=== PATIENT | female | born 1980 | race Hispanic/Latino ===

== ENCOUNTER 2017-04-11 19:30 | Emergency (ER) | payer OTHER ==
[~2017-04-11] VITALS: Ht 144.8 cm; Wt 74.8 kg
[2017-04-11] MEDS ORDERED: RANI150T11 (19:48)
[2017-04-11] MEDS ORDERED: POLY255P (19:48)
[2017-04-11 20:04] LABS: BASOPHILS % (AUTO) 0 % (0-10); EOSINOPHILS # (AUTO) 0.1 10^3/uL (0.0-0.3); EOSINOPHILS % (AUTO) 2 % (0-10); LYMPHOCYTES # (AUTO) 2.3 X 10^3 (1.0-4.0); LYMPHOCYTES % (AUTO) 41 % (12-44); MEAN CORPUSCULAR HEMOGLOBIN 28 PG (25-34); MEAN CORPUSCULAR HGB CONC 35 G/DL (32-36); MEAN CORPUSCULAR VOLUME 82 FL (80-99); MEAN PLATELET VOLUME 10.4 FL (7.4-10.4); MONOCYTES # (AUTO) 0.7 X 10^3 (0.0-1.0); MONOCYTES % (AUTO) 12 % (0-12); NEUTROPHILS # (AUTO) 2.6 X 10^3 (1.8-7.8); NEUTROPHILS % (AUTO) 45 % (42-75); PLATELET COUNT 265 10^3/uL (130-400); RED BLOOD COUNT 4.13 10^6/uL (4.35-5.85); RED CELL DISTRIBUTION WIDTH 13.7 % (10.0-14.5); WHITE BLOOD COUNT 5.7 10^3/uL (4.3-11.0)
[2017-04-11 20:04] LABS: BILIRUBIN,URINE NEGATIVE (NEGATIVE); KETONES,URINE NEGATIVE (NEGATIVE); LEUKOCYTE ESTERASE ,URINE NEGATIVE (NEGATIVE); NITRITE,URINE NEGATIVE (NEGATIVE); PH,URINE 6.5 (5-9); PROTEIN,URINE NEGATIVE (NEGATIVE); UROBILINOGEN,URINE NORMAL (NORMAL)
[2017-04-11] MEDS ORDERED: NS IV 1000 ML 1,000 ML IV ONE (20:05)
[2017-04-11] MEDS ORDERED: KETOROLAC 30 MG/ML VIAL IVP STA (20:05)
--- NOTE | 2017-04-11 20:10 | ED Abdominal Pain ---
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 Reports 4 wk onset of symptoms. Worse with eating or drinking. Also reports intermittent headaches with the abdominal pain. Patient moved here from [facility] 2 months ago. Denies any known mosquito or tick bites. Timing/Duration: Intermittent, Other (4 wks) Severity/Quality: Aching, Cramping Location: LUQ Radiation: Flank (left flank) Activities at Onset: Other (after eating) Modifying Factors: Worsens With Eating, Worsens With Palpation, Worsens With Other (worse with deep breaths) Allergies and Home Medications Allergies Coded Allergies: No Known Drug Allergies (Unverified , 04/11/17) Home Medications Ondansetron 8 Mg Tab.rapdis, 8 MG PO Q6H PRN for NAUSEA/VOMITING-1ST LINE, #10 Ref 0 Prescribed by: FELICE DEMARCO on 04/11/172128 Pantoprazole Sodium 40 Mg Tablet.dr, 40 MG PO BID, #42 Ref 3 One pill 2 times per day for 2 weeks, then one pill daily from that point forward. Prescribed by: DAYAMI MARCUM on 04/28/17 1334 Polyethylene Glycol 3350 255 Gm Powder, (Reported) Sucralfate 1 Gm Tablet, 1 GM PO QID, #120 Prescribed by: DAYAMI MARCUM on 04/28/17 1334 Review of Systems Constitutional: No chills, No fever, malaise, other (fatigue) EENTM: No Symptoms Reported Respiratory: Denies Cough, Denies Shortness of Air Cardiovascular: Denies Chest Pain, Denies Lightheadedness, Denies Palpitations Gastrointestinal: See HPI, Denies Abdomen Distended, Abdominal Pain, Denies Blood Streaked Stools, Denies Constipated, Denies Diarrhea, Nausea, Poor Appetite, Denies Poor Fluid Intake, Denies Rectal Bleeding, Vomiting Genitourinary: Denies Burning, Denies Discharge, Denies Frequency, Denies Flank Pain, Denies Hematuria, Denies Pain Musculoskeletal: no symptoms reported Skin: no symptoms reported Psychiatric/Neurological: No Symptoms Reported Endocrine: No Symptoms Reported All Other Systems Reviewed Negative Unless Noted: Yes (Negative excepted noted.) Past Kbzroep-Qhqnty-Gxjxsc Hx Patient Social History Alcohol Use: Denies Use Recreational Drug Use: No Smoking Status: Never a Smoker 2nd Hand Smoke Exposure: No Recent Foreign Travel: No Contact w/Someone Who Travel: No Recent Infectious Disease Expo: No Recent Hopitalizations: No Immunizations Up To Date Tetanus Booster (TDap): Unknown Seasonal Allergies Seasonal Allergies: No Surgeries History of Surgeries: Yes Surgeries: Section, Gallbladder Respiratory History of Respiratory Disorde: No Cardiovascular History of Cardiac Disorders: No Neurological History of Neurological Disord: No Reproductive System : No Genitourinary History of Genitourinary Disor: No Gastrointestinal History of Gastrointestinal Di: No Musculoskeletal History of Musculoskeletal Dis: No Endocrine History of Endocrine Disorders: No HEENT History of HEENT Disorders: No Cancer History of Cancer: No Psychosocial History of Psychiatric Problem: No Integumentary History of Skin or Integumenta: No Blood Transfusions History of Blood Disorders: No Reviewed Nursing Assessment Reviewed/Agree w Nursing PMH: Yes Family Medical History Significant Family History: No Pertinent Family Hx Physical Exam Vital Signs Capillary Refill : Less Than 3 Seconds General Appearance: WD/WN, no apparent distress HEENT: PERRL/EOMI, pharynx normal Neck: supple, normal inspection Respiratory: lungs clear, normal breath sounds, no respiratory distress, no accessory muscle use Cardiovascular: normal peripheral pulses, regular rate, rhythm, no edema, no murmur Gastrointestinal: normal bowel sounds, soft, no organomegaly, No distended, guarding (BUQ and epigastric), No rebound, tenderness (generalized tenderness with greatest tenderness in the BUQ and epigastric.), No mass Extremities: no pedal edema, normal capillary refill Back: normal inspection, no CVA tenderness Neurologic/Psychiatric: alert, normal mood/affect, oriented x 3 Skin: normal color, warm/dry Progress/Results/Core Measures Results/Orders Lab Results Laboratory Tests Test 04/11/17 19:50 04/11/17 20:00 Range/Units Urine Color YELLOW Urine Clarity CLEAR Urine pH 6.5 5-9 Urine Specific [place] 1.010 L 1.016-1.022 Urine Protein NEGATIVE NEGATIVE Urine Glucose (UA) NEGATIVE NEGATIVE Urine Ketones NEGATIVE NEGATIVE Urine Nitrite NEGATIVE NEGATIVE Urine Bilirubin NEGATIVE NEGATIVE Urine Urobilinogen NORMAL NORMAL MG/DL Urine Leukocyte Esterase NEGATIVE NEGATIVE Urine RBC (Auto) 5+ H NEGATIVE Urine RBC RARE /HPF Urine WBC 0-2 /HPF Urine Squamous Epithelial Cells 25-50 H /HPF Urine Renal Epithelial Cells NONE /HPF Urine Crystals NONE /LPF Urine Bacteria NEGATIVE /HPF Urine Casts NONE /LPF Urine Mucus SMALL H /LPF Urine Culture Indicated NO White Blood Count 5.7 4.3-11.0 10^3/uL Red Blood Count 4.13 L 4.35-5.85 10^6/uL Hemoglobin 11.7 11.5-16.0 G/DL Hematocrit 34 L 35-52 % Mean Corpuscular Volume 82 80-99 FL Mean Corpuscular Hemoglobin 28 25-34 PG Mean Corpuscular Hemoglobin Concent 35 32-36 G/DL Red Cell Distribution Width 13.7 10.0-14.5 % Platelet Count 265 130-400 10^3/uL Mean Platelet Volume 10.4 7.4-10.4 FL Neutrophils (%) (Auto) 45 42-75 % Lymphocytes (%) (Auto) 41 12-44 % Monocytes (%) (Auto) 12 0-12 % Eosinophils (%) (Auto) 2 0-10 % Basophils (%) (Auto) 0 0-10 % Neutrophils # (Auto) 2.6 1.8-7.8 X 10^3 Lymphocytes # (Auto) 2.3 1.0-4.0 X 10^3 Monocytes # (Auto) 0.7 0.0-1.0 X 10^3 Eosinophils # (Auto) 0.1 0.0-0.3 10^3/uL Basophils # (Auto) 0.0 0.0-0.1 10^3/uL Sodium Level 139 135-145 MMOL/L Potassium Level 3.4 L 3.6-5.0 MMOL/L Chloride Level 107 98-107 MMOL/L Carbon Dioxide Level 23 21-32 MMOL/L Anion Gap 9 5-14 MMOL/L Blood Urea Nitrogen 6 L 7-18 MG/DL Creatinine 0.67 0.60-1.30 MG/DL Estimat Glomerular Filtration Rate > 60 BUN/Creatinine Ratio 9 Glucose Level 90 70-105 MG/DL Calcium Level 8.7 8.5-10.1 MG/DL Total Bilirubin 0.4 0.1-1.0 MG/DL Aspartate Amino Transf (AST/SGOT) 21 5-34 U/L Alanine Aminotransferase (ALT/SGPT) 22 0-55 U/L Alkaline Phosphatase 65 40-136 U/L C-Reactive Protein High Sensitivity 0.15 0.00-0.50 MG/DL Total Protein 7.0 6.4-8.2 GM/DL Albumin 3.9 3.2-4.5 GM/DL Lipase 29 8-78 U/L FELICE Fontanez Urine Bedside (04/11/17 19:37) Ua Culture If Indicated (04/11/17 19:37) Saline Lock/Iv-Start (04/11/17 19:47) Cbc With Automated Diff (04/11/17 19:47) Comprehensive Metabolic Panel (04/11/17 19:47) Hs C Reactive Protein (04/11/17 19:47) Lipase (04/11/17 19:47) Ketorolac Injection (Toradol Injection) (04/11/17 20:05) Ondansetron Injection (Zofran Injectio (04/11/17 20:15) Ns Iv 1000 Ml (Sodium Chloride 0.9%) (04/11/17 20:05) Ct Abdomen/Pelvis W (04/11/17 20:26) Iohexol Injection (Omnipaque 350 Mg/Ml 1 (04/11/17 20:30) Ns (Ivpb) (Sodium Chloride 0.9% Ivpb Bag (04/11/17 20:30) Pharmacy Communication (Pharmacy Communi (04/11/17 20:28) Ondansetron Injection (Zofran Injectio (04/11/17 21:45) Lidocaine 2% Viscous 15 Ml (Xylocaine Vi (04/11/17 21:45) Antacid Suspension (Mylanta Suspension (04/11/17 21:45) Fentanyl Injection (Sublimaze Injection (04/11/17 21:32) Rx-Tramadol Hcl (Rx-Ultram) (04/11/17 21:32) Diphenhydramine Injection (Benadryl Inje (04/11/17 21:52) Methylprednisolone Sod Succ (Solu-Medrol (04/11/17 21:52) Diphenhydramine Injection (Benadryl Inje (04/11/17 21:46) Methylprednisolone Sod Succ (Solu-Medrol (04/11/17 21:46) 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 The gallbladder is surgically absent. Liver , spleen, pancreas, adrenal glands, kidneys, vascular structures and bowel are normal. There is no free air or free fluid. The appendix is normal. No significant constipation is seen. Uterus is intact. Distal ureters and urinary bladder normal. There is no hernia. Osseous structures are age-appropriate. IMPRESSION: Negative CT abdomen. Dictated on workstation # [id number] Reviewed: Reviewed by Me (radiology report reviewed by me) Departure Communication (Admissions) Progress Notes All laboratory and diagnostic findings discussed with the patient. Patient reports feeling better at this time with medications given in the emergency department. Plan for discharge to home with follow-up as an outpatient with Dr. Marcum for possible need of upper endoscopy as well as [facility] for recheck. Impression Impression: Primary Impression: Abdominal pain Additional Impressions: Headache Fatigue Disposition: HOME, SELF-CARE Condition: Improved Departure-Patient Inst. Decision time for Depature: 21:23 Referrals: [facility] (PCP/Family) Primary Care Physician DAYAMI MARCUM DO Patient Instructions: Acute Abdomen (Belly Pain), Adult (DC), Fatigue (DC), Headache, Adult (DC) Add. Discharge Instructions: All discharge instructions reviewed with patient and/or family. Voiced understanding. Medications as directed. Tylenol extra strength over the counter as directed for pain or headache. No ibuprofen, aleve, spicy foods, fatty foods, caffeine, carbonated beverages, smoking, second hand smoke, alcohol. Do not eat within 2 hours of lying down. Follow-up with your family practitioner and/or Dr. Marcum for recheck and possible need for EGD (upper endoscopy). Call Thursday morning for appointment time. Return to the emergency department for worsened pain, fever, vomiting blood, black stools, abdominal swelling, inability to urinate, or any other concerns. Scripts Ondansetron (Ondansetron Odt) 8 Mg Tab.rapdis 8 MG PO Q6H Y for NAUSEA/VOMITING-1ST LINE, #10 TAB 0 Refills Prov: FELICE DEMARCO 04/11/17 Work/School Note: Work Release Form Date Seen in the Emergency Department: Apr 11, 2017 Return to Work: Apr 13, 2017 FELICE DEMARCO Apr 11, 2017 20:10
[2017-04-11] MEDS ORDERED: ONDANSETRON 4 MG/2 ML (SDV) Z0FRAN IVP ONE ×2 (20:15→21:45)
[2017-04-11 20:18] LABS: SQUAMOUS EPITHELIAL CELL,UR 25-50 /HPF; WBC,URINE 0-2 /HPF
[2017-04-11 20:27] LABS: ALANINE AMINOTRANSFERASE 22 U/L (0-55); ALBUMIN 3.9 GM/DL (3.2-4.5); ANION GAP 9 MMOL/L (5-14); ASPARTATE AMINO TRANSFERASE 21 U/L (5-34); BILIRUBIN,TOTAL 0.4 MG/DL (0.1-1.0); BLOOD UREA NITROGEN 6 MG/DL (7-18); BUN/CREATININE RATIO 9; CALCIUM 8.7 MG/DL (8.5-10.1); CARBON DIOXIDE 23 MMOL/L (21-32); CHLORIDE 107 MMOL/L (98-107); CREATININE SERUM 0.67 MG/DL (0.60-1.30); GFR ESTIMATED > 60; GLUCOSE 90 MG/DL (70-105); LIPASE 29 U/L (8-78); POTASSIUM 3.4 MMOL/L (3.6-5.0); SODIUM 139 MMOL/L (135-145); hs C REACTIVE PROTEIN 0.15 MG/DL (0.00-0.50)
[2017-04-11] MEDS ORDERED: IOHEXOL 350 MG/ML 100 ML (OMNIPAQUE 350) VIAL IV ONE (20:30)
[2017-04-11] MEDS ORDERED: NS 100 ML (IVPB) BAG IV ONE (20:30)
--- NOTE | 2017-04-11 21:03 | Diagnostic Imaging Report ---
PROCEDURE: CT abdomen and pelvis with contrast. TECHNIQUE: Multiple contiguous axial images were obtained through the abdomen and pelvis after administration of intravenous contrast. INDICATION: Left-sided abdominal pain, headache, nausea COMPARISON: None FINDINGS: The lung bases are clear. The gallbladder is surgically absent. Liver, spleen, pancreas, adrenal glands, kidneys, vascular structures and bowel are normal. There is no free air or free fluid. The appendix is normal. No significant constipation is seen. Uterus is intact. Distal ureters and urinary bladder normal. There is no hernia. Osseous structures are age-appropriate. IMPRESSION: Negative CT abdomen. Dictated by: Dictated on workstation # [id number]
[2017-04-11] MEDS ORDERED: ONDA8TAB13 PO (21:29)
[2017-04-11] MEDS ORDERED: OMEP40CA36 PO (21:31)
[2017-04-11] MEDS ORDERED: fentaNYL INJECTION 100 MCG/2 ML AMP IVP STA (21:32)
[2017-04-11] MEDS ORDERED: RX-TRAMADOL 50 MG (ULTRAM) TAB PPK#4 PO STA (21:32)
[2017-04-11] MEDS ORDERED: ANTACID SUSP 30 ML UDC (MYLANTA) PO ONE (21:45)
[2017-04-11] MEDS ORDERED: LIDOCAINE 2% VISCOUS 15 ML UDC PO ONE (21:45)
[2017-04-11] MEDS ORDERED: methylPREDNISolone 125 MG (Solu-MEDROL) VIAL ONE (21:46)
[2017-04-11] MEDS ORDERED: diphenhydrAMINE 50 MG/ML INJ (BENADRYL) ONE (21:46)
[2017-04-11] MEDS ORDERED: diphenhydrAMINE 50 MG/ML INJ (BENADRYL) IV STA (21:52)
[2017-04-11] MEDS ORDERED: methylPREDNISolone 125 MG (Solu-MEDROL) VIAL IV STA (21:52)
[2017-04-11 22:35] VITALS: BP 142/95
[2017-04-28] MEDS ORDERED: PANT40TA2 PO (13:34)
[2017-04-28] MEDS ORDERED: SUCR1TAB36 PO (13:34)
== END 2017-04-11 22:32 | disposition home or self-care (01) ==
LOC: ER 19:33
DX: R10.12 Left upper quadrant pain (principal); R51 Headache; R53.83 Other fatigue; Z87.59 Personal history of other complications of pregnancy, childbirth and the puerperium
CPT/HCPCS: 36415; 74177; 80053; 81000; 83690; 84703; 85025; 86141; 96361; 96374; 96375; 96376

== ENCOUNTER → 2017-04-24 | Outpatient (CLI) | payer OTHER ==
[~2017-04-24] MED LIST: OMEP40CA36 PO; ONDA8TAB13 PO; PANT40TA2 PO; POLY255P; RANI150T11; SUCR1TAB36 PO
== END ==
LOC: PREOP 05:35 → MERGE 05:35
PROVIDERS: ATTEND Surgery
DX: Z01.818 Encounter for other preprocedural examination (principal); R10.13 Epigastric pain; R11.0 Nausea

== ENCOUNTER 2017-04-28 12:28 | Day surgery (SDC) | payer OTHER ==
[~2017-04-28] VITALS: Ht 144.8 cm; Wt 74.8 kg
[~2017-04-28 12:28] MED LIST changes: -PANT40TA2 PO; -SUCR1TAB36 PO
[2017-04-28] MEDS ORDERED: LACTATED RINGERS 1,000 ML IV STA (12:37)
[2017-04-28] MEDS ORDERED: HURRICAINE EXT TUBE (BENZOCAINE) XX PRN (12:45)
[2017-04-28] MEDS ORDERED: MIDAZOLAM 2 MG/2 ML (VERSED) VIAL ONE (12:50)
[2017-04-28] MEDS ORDERED: proPOfol 200 MG/20 ML (DIPRIVAN) VIAL IV ONE (12:50)
[2017-04-28 12:51] VITALS: BP 115/57
[2017-04-28] MEDS ORDERED: HURRICAINE EXT TUBE (BENZOCAINE) ONE (12:54)
--- NOTE | 2017-04-28 13:09 | Progress Note-Pre Operative ---
Pre-Operative Progress Note H&P Reviewed The H&P was reviewed, patient examined and no changes noted. Date Seen by Provider: Apr 28, 2017 Time Seen by Provider: 13:09 Date H&P Reviewed: Apr 28, 2017 Time H&P Reviewed: 13:09 Pre-Operative Diagnosis: epigastric abdominal pain DAYAMI JARQUIN DO Apr 28, 2017 1:09 pm
--- NOTE | 2017-04-28 13:31 | Progress Note-Post Operative ---
Post-Operative Progess Note Surgeon (s)/Strip Picker (s) Surgeon DAYAMI JARQUIN DO Strip Picker: na Pre-Operative Diagnosis epigastric abdominal pain Post-Operative Diagnosis antral ulcer and gastritis Procedure & Operative Findings Date of Procedure 04/28/17 Procedure Performed/Findings egd c biopsies Anesthesia Type per glazing machine operator Estimated Blood Loss Estimated blood loss (mL): min Specimens/Packing Specimens Removed antrum, body, ge junction DAYAMI JARQUIN DO Apr 28, 2017 1:31 pm
[2017-04-28] MEDS ORDERED: SUCR1TAB36 PO (13:34)
[2017-04-28] MEDS ORDERED: PANT40TA2 PO (13:34)
--- NOTE | 2017-04-28 13:35 | Discharge Inst-Simple/Standard ---
Discharge Inst-Standard Discharge Medications New, Converted or Re-Newed RX: Transmitted to Pharmacy Patient Instructions/Follow Up Plan of Care/Instructions/FU: 3 weeks scottie Activity as Tolerated: Yes Discharge Diet: Regular Diet DAYAMI JARQUIN DO Apr 28, 2017 1:35 pm
[2017-04-28 13:40] VITALS: BP 123/69
[2017-04-28 14:10] VITALS: BP 123/79
[2017-04-28 14:25] VITALS: BP 123/79
--- NOTE | 2017-04-30 15:08 | OPERATIVE REPORT ---
DATE OF SERVICE: 04/28/2017 PREOPERATIVE DIAGNOSIS: Epigastric abdominal pain. POSTOPERATIVE DIAGNOSES: Gastritis, gastric ulcer. PROCEDURE: EGD with biopsy. SURGEON: Dayami Marcum DO ANESTHESIA: Per TRAVELING STOREKEEPER. ESTIMATED BLOOD LOSS: Minimal. COMPLICATIONS: None. INDICATIONS: The patient is a 36-year-old female with epigastric abdominal pain. She was recommended to have an EGD. She understands the risks and benefits of procedure and wished to proceed with procedure. Consent was signed and in the chart. DESCRIPTION OF PROCEDURE: The patient was taken to the endoscopy suite and placed in left lateral recumbent position. Timeout was performed. Scope was inserted in the mouth, down the esophagus, stomach and into the duodenum without difficulty. There were no polyps, mass or ulcerations within the duodenum. The scope was slowly retracted back into the stomach, where a small antrum present. Biopsy of this area was performed also along with the antrum as well. The scope was then retroflexed noting some significant erythematous changes of the body of the stomach. Biopsies of this area were obtained. The mucosa was extremely friable in this area as well. Scope was then returned to its normal position, slowly withdrawn back into the distal esophagus, which had some slight erythematous changes present. Biopsy of the GE junction was obtained. Scope was then slowly retracted back until completely removed noting no other pathology. The patient tolerated the procedure well without any complications. She was taken to recovery room in stable condition. RECOMMENDATIONS: The patient will be started on Protonix 40 mg twice a day for two weeks, then once daily. She will also be started on Carafate 1 gram four times a day. The patient will follow up in approximately 3 weeks. If she has any problems prior to that, she should be reevaluated at that time. Job ID: [id number] DocumentID: [id number] Dictated Date: 04/28/2017 13:38:51 Cold Roll Packer Sheet Iron Date: 04/29/2017 05:01:41 Dictated By: DAYAMI MARCUM DO
== END 2017-04-28 13:50 | disposition home or self-care (01) ==
LOC: ENDO 12:28 → MERGE 13:30 → ENDO 13:50
PROVIDERS: ATTEND Surgery
DX: K25.9 Gastric ulcer, unspecified as acute or chronic, without hemorrhage or perforation (principal); K29.70 Gastritis, unspecified, without bleeding; E66.9 Obesity, unspecified; Z68.35 Body mass index [BMI] 35.0-35.9, adult
CPT/HCPCS: 84703

== ENCOUNTER 2021-02-12 20:12 | Emergency (ER) | payer SELFPAY ==
[~2021-02-12] VITALS: Ht 155 cm; Wt 81.0 kg
[~2021-02-12 20:12] MED LIST changes: -OMEP40CA36 PO; +OMEP40CA6 PO; +PANT40TA2 PO; -POLY255P; +POLY255P16; +SUCR1TAB36 PO
[2021-02-12 20:59] LABS: BILIRUBIN,URINE NEGATIVE (NEGATIVE); CLARITY,URINE CLEAR; COLOR,URINE YELLOW; GLUCOSE, URINE (UA) NEGATIVE (NEGATIVE); KETONES,URINE NEGATIVE (NEGATIVE); LEUKOCYTE ESTERASE ,URINE NEGATIVE (NEGATIVE); NITRITE,URINE NEGATIVE (NEGATIVE); PROTEIN,URINE NEGATIVE (NEGATIVE)
[2021-02-12] MEDS ORDERED: ONDANSETRON 4 MG/2 ML (SDV) Z0FRAN IVP ONE (21:00)
[2021-02-12] MEDS ORDERED: LACTATED RINGERS 1,000 ML IV ONE (21:00)
[2021-02-12 21:03] LABS: BASOPHILS % (AUTO) 0 % (0-10); EOSINOPHILS # (AUTO) 0.3 10^3/uL (0.0-0.3); EOSINOPHILS % (AUTO) 3 % (0-10); HEMATOCRIT 35 % (35-52); HEMOGLOBIN 11.3 g/dL (11.5-16.0); LYMPHOCYTES # (AUTO) 2.6 10^3/uL (1.0-4.0); LYMPHOCYTES % (AUTO) 30 % (12-44); MEAN CORPUSCULAR HEMOGLOBIN 26 pg (25-34); MEAN CORPUSCULAR HGB CONC 32 g/dL (32-36); MEAN CORPUSCULAR VOLUME 81 fL (80-99); MEAN PLATELET VOLUME 10.8 fL (9.0-12.2); MONOCYTES # (AUTO) 0.9 10^3/uL (0.0-1.0); MONOCYTES % (AUTO) 10 % (0-12); NEUTROPHILS # (AUTO) 5.1 10^3/uL (1.8-7.8); NEUTROPHILS % (AUTO) 57 % (42-75); PLATELET COUNT 313 10^3/uL (130-400); WHITE BLOOD COUNT 8.8 10^3/uL (4.3-11.0)
[2021-02-12 21:05] LABS: CHLORIDE 102 MMOL/L (98-107); SODIUM 138 MMOL/L (135-145)
[2021-02-12 21:06] LABS: AMYLASE 51 U/L (25-125)
[2021-02-12 21:07] LABS: CALCIUM 8.8 MG/DL (8.5-10.1)
[2021-02-12 21:07] LABS: BACTERIA,URINE NEGATIVE /HPF
[2021-02-12 21:08] LABS: AMORPHOUS SEDIMENT,UR RARE AMOR URATES /LPF
[2021-02-12 21:08] LABS: GLUCOSE 111 MG/DL (70-105); TOTAL PROTEIN 7.5 GM/DL (6.4-8.2)
[2021-02-12 21:09] LABS: CARBON DIOXIDE 24 MMOL/L (21-32)
[2021-02-12 21:10] LABS: BILIRUBIN,TOTAL 0.2 MG/DL (0.1-1.0)
[2021-02-12 21:11] LABS: ALKALINE PHOSPHATASE 69 U/L (40-136); GFR ESTIMATED > 60
[2021-02-12 21:12] LABS: BUN/CREATININE RATIO 11
[2021-02-12 21:14] LABS: ALANINE AMINOTRANSFERASE 37 U/L (0-55)
[2021-02-12 21:15] LABS: LIPASE 26 U/L (8-78)
--- NOTE | 2021-02-12 21:19 | ED Abdominal Pain ---
General Chief Complaint: Abdominal/GI Problems Stated Complaint: STOMACH PAIN, BODY ACHE Nursing Triage Note: patient states abominal pain for fifteen days, states worse tonight. 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 S/P BTL. SYMPTOMS NO DIFFERENT TODAY HAS NOT TAKEN ANYTHING FOR SYMPTOMS HAS NOT SOUGHT CARE UNTIL TONIGHT. NO HISTORY OF SIMILAR PT HAS HAD CHOLECYSTECTOMY, X 2 AND BTL PCP: EDWARD Allergies and Home Medications Allergies Coded Allergies: No Known Drug Allergies (Unverified , 04/11/17) Home Medications Hydrocortisone 28.4 Gm Cream..g., 28.4 GM TP BID Prescribed by: CHARLES DOWNS on 02/12/212250 Hydrocortisone Acetate 30 Mg Supp.rect, 30 MG RC PRN Prescribed by: CHARLES DOWNS on 02/12/212250 Ondansetron 8 Mg Tab.rapdis, 8 MG PO Q6H PRN for NAUSEA/VOMITING-1ST LINE Prescribed by: FELICE DEMARCO on 04/11/172128 Ondansetron 4 Mg Tab.rapdis, 4 MG PO Q4H Prescribed by: CHARLES DOWNS on 02/12/21 230 Pantoprazole Sodium 40 Mg Tablet.dr, 40 MG PO BID One pill 2 times per day for 2 weeks, then one pill daily from that point forward. Prescribed by: DAYAMI JARQUIN on 04/28/17 133 Sucralfate 1 Gm Tablet, 1 GM PO QID Prescribed by: DAYAMI JARQUIN on 04/28/17 133 Patient Home Medication List Home Medication List Reviewed: Yes Review of Systems Review of Systems Constitutional: no symptoms reported EENTM: No Symptoms Reported Respiratory: No Symptoms Reported Cardiovascular: No Symptoms Reported Gastrointestinal: See HPI, Abdominal Pain, Constipated, Nausea; Denies Vomiting Genitourinary: No Symptoms Reported Musculoskeletal: no symptoms reported; No back pain Skin: no symptoms reported Psychiatric/Neurological: No Symptoms Reported Endocrine: No Symptoms Reported Hematologic/Lymphatic: No Symptoms Reported Past Rizztdn-Hqpltm-Gcznud Hx Patient Social History Tobacco Use?: No Use of E-Cig and/or Vaping dev: No Substance use?: No Alcohol Use?: No Immunizations Up To Date Tetanus Booster (TDap): Unknown Influenza Vaccine Up-to-Date: Yes; Up-to-Date Seasonal Allergies Seasonal Allergies: No Past Medical History Surgeries: Yes ( X 2) Section, Gallbladder, Tubal Ligation Respiratory: No Cardiac: No Neurological: No : No Reproductive Disorders: No 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 0.0oz. 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, no motor/sensory deficits, alert, normal mood/affect, oriented x 3 Skin: normal color (PT IS ), warm/dry; No rash Progress/Results/Core Measures Results/Orders Lab Results Laboratory Tests Test 02/12/21 20:40 02/12/21 20:43 Range/Units White Blood Count 8.8 4.3-11.0 10^3/uL Red Blood Count 4.32 3.80-5.11 10^6/uL Hemoglobin 11.3 L 11.5-16.0 g/dL Hematocrit 35 35-52 % Mean Corpuscular Volume 81 80-99 fL Mean Corpuscular Hemoglobin 26 25-34 pg Mean Corpuscular Hemoglobin Concent 32 32-36 g/dL Red Cell Distribution Width 13.5 10.0-14.5 % Platelet Count 313 130-400 10^3/uL Mean Platelet Volume 10.8 9.0-12.2 fL Immature Granulocyte % (Auto) 0 % Neutrophils (%) (Auto) 57 42-75 % Lymphocytes (%) (Auto) 30 12-44 % Monocytes (%) (Auto) 10 0-12 % Eosinophils (%) (Auto) 3 0-10 % Basophils (%) (Auto) 0 0-10 % Neutrophils # (Auto) 5.1 1.8-7.8 10^3/uL Lymphocytes # (Auto) 2.6 1.0-4.0 10^3/uL Monocytes # (Auto) 0.9 0.0-1.0 10^3/uL Eosinophils # (Auto) 0.3 0.0-0.3 10^3/uL Basophils # (Auto) 0.0 0.0-0.1 10^3/uL Immature Granulocyte # (Auto) 0.0 0.0-0.1 10^3/uL Erythrocyte Sedimentation Rate 25 H 0-20 MM/HR Sodium Level 138 135-145 MMOL/L Potassium Level 4.0 3.6-5.0 MMOL/L Chloride Level 102 98-107 MMOL/L Carbon Dioxide Level 24 21-32 MMOL/L Anion Gap 12 5-14 MMOL/L Blood Urea Nitrogen 8 7-18 MG/DL Creatinine 0.70 0.60-1.30 MG/DL Estimat Glomerular Filtration Rate > 60 BUN/Creatinine Ratio 11 Glucose Level 111 H 70-105 MG/DL Calcium Level 8.8 8.5-10.1 MG/DL Corrected Calcium 8.8 8.5-10.1 MG/DL Total Bilirubin 0.2 0.1-1.0 MG/DL Aspartate Amino Transf (AST/SGOT) 26 5-34 U/L Alanine Aminotransferase (ALT/SGPT) 37 0-55 U/L Alkaline Phosphatase 69 40-136 U/L Lactate Dehydrogenase 141 125-220 U/L C-Reactive Protein High Sensitivity 0.51 H 0.00-0.50 MG/DL Total Protein 7.5 6.4-8.2 GM/DL Albumin 4.0 3.2-4.5 GM/DL Amylase Level 51 25-125 U/L Lipase 26 8-78 U/L Procalcitonin 0.02 <0.10 NG/ML Serum Test, Qualitative NEGATIVE NEGATIVE Influenza Type A (RT-PCR) Not Detected Not Detecte Influenza Type B (RT-PCR) Not Detected Not Detecte SARS-CoV-2 RNA (RT-PCR) Not Detected Not Detecte Urine Color YELLOW Urine Clarity CLEAR Urine pH 6.0 5-9 Urine Specific [place] 1.010 L 1.016-1.022 Urine Protein NEGATIVE NEGATIVE Urine Glucose (UA) NEGATIVE NEGATIVE Urine Ketones NEGATIVE NEGATIVE Urine Nitrite NEGATIVE NEGATIVE Urine Bilirubin NEGATIVE NEGATIVE Urine Urobilinogen 0.2 < = 1.0 MG/DL Urine Leukocyte Esterase NEGATIVE NEGATIVE Urine RBC (Auto) NEGATIVE NEGATIVE Urine RBC NONE /HPF Urine WBC NONE /HPF Urine Crystals PRESENT H /LPF Urine Amorphous Sediment RARE NIKHIL URATES H /LPF Urine Bacteria NEGATIVE /HPF Urine Casts NONE /LPF Urine Mucus NEGATIVE /LPF Urine Culture Indicated NO My Orders Orders - CHARLES DOWNS DO Ed Iv/Invasive Line Start (02/12/21 20:35) Monitor-Rhythm Ecg Trace Only (02/12/21 20:35) Cbc With Automated Diff (02/12/21 20:35) Comprehensive Metabolic Panel (02/12/21 20:35) Procalcitonin (Pct) (02/12/21 20:35) Hs C Reactive Protein (02/12/21 20:35) Erythrocyte Sedimentation Rate (02/12/21 20:35) LDH (02/12/21 20:35) Hcg,Qualitative Serum (02/12/21 20:35) Amylase (02/12/21 20:35) Lipase (02/12/21 20:35) Ua Culture If Indicated (02/12/21 20:35) Covid 19 Inhouse Test (02/12/21 20:35) Influenza A And B By Pcr (02/12/21 20:35) Ondansetron Injection (Zofran Injectio (02/12/21 21:00) Ed Iv/Invasive Line Start (02/12/21 20:53) Lactated Ringers (Lr 1000 Ml Iv Solution (02/12/21 21:00) Ct Abd/Pelv W (Appendicitis) (02/12/21 21:13) Acute Abd Series (02/12/21 21:13) Ketorolac Injection (Toradol Injection) (02/12/21 21:30) Iohexol Injection (Omnipaque 350 Mg/Ml 1 (02/12/21 21:45) Received Contrast (Hold Metformin- Contr (02/12/21 21:45) Ns (Ivpb) (Sodium Chloride 0.9% Ivpb Bag (02/12/21 21:45) Iohexol Injection (Omnipaque 350 Mg/Ml 1 (02/12/21 22:15) Ns (Ivpb) (Sodium Chloride 0.9% Ivpb Bag (02/12/21 22:15) Bisacodyl Suppository (Dulcolax Supposit (02/12/21 23:00) Medications Given in ED Current Medications Medications Dose Ordered Sig/Josh Route Start Time Stop Time Status Last Admin Dose Admin Bisacodyl 10 mg ONCE ONCE MA 02/12/21 23:00 02/12/21 23:01 DC 02/12/21 23:28 10 MG Iohexol 100 ml ONCE ONCE IV 02/12/21 21:45 02/12/21 21:46 DC 02/12/21 22:09 100 ML Ketorolac Tromethamine 30 mg ONCE ONCE IVP 02/12/21 21:30 02/12/21 21:31 DC 02/12/21 22:06 30 MG Lactated Ringer's 1,000 ml @ 0 mls/hr Q0M ONCE IV 02/12/21 21:00 02/12/21 21:01 DC 02/12/21 21:07 0 MLS/HR Ondansetron HCl 4 mg ONCE ONCE IVP 02/12/21 21:00 02/12/21 21:01 DC 02/12/21 21:08 4 MG Vital Signs/I&O 02/12/21 20:40 Temp 37.0 Pulse 83 Resp 20 B/P (MAP) 119/85 (96) Pulse Ox 99 O2 Delivery Room Air Blood Pressure Mean: 96 Progress Progress Note : Progress Note PLACED IN ISOLATION ROOM PPE WORN COVID-19 TESTING PERFORMED GIVEN IV FLUIDS AND NAUSEA MEDICATION WITH IMPROVEMENT IN SYMPTOMS NO DETERIORATION IN PT'S CONDITION DURING ER STAY Diagnostic Imaging Comments ABDOMEN XRAYS--PER RADIOLOGIST REPORT AT 2231 ABDOMEN AND PELVIS: Unremarkable x-ray of the abdomen with nonobstructed bowel gas pattern. There is no evidence of abdominal free air. There is a moderate amount of stool in the right colon. There are no focal calcifications overlying the expected regions/ pathways of both kidneys, ureters, and bladder regions. Rounded density in the pelvis is suspected to represent the bladder. IMPRESSION: 1: Unremarkable chest x-ray exam with no radiographic evidence of acute cardiopulmonary process. 2: Unremarkable x-ray of the abdomen. There is moderate amount of stool in the right colon region. CT ABDOMEN/PELVIS--PER [facility] VIA FAX AT 2247 NO ACUTE PROCESS Reviewed: Reviewed by Me Departure Impression Primary Impression: Abdominal pain Additional Impression: Constipation Disposition: 01 HOME, SELF-CARE Condition: Stable Departure-Patient Inst. Referrals: [facility] (PCP/Family) Primary Care Physician Patient Instructions: Abdominal Pain, Adult ED, Constipation, Adult (DC) Add. Discharge Instructions: CLEAR LIQUIDS--WATER, BROTH, JELLO, GATORADE--NO FOOD UNTIL YOUR BOWELS HAVE EMPTIED USE MIRALAX EVERY 1-2 HOURS UNTIL YOUR BOWELS HAVE EMPTIED, THEN USE 1-2 TIMES A DAY EVERY DAY USE DULCOLAX SUPPOSITORIES AND FLEET'S ENEMAS FOR BOWEL MOVEMENT ONCE YOUR BOWELS HAVE EMPTIED AND YOUR PAIN IS BETTER, START A HIGH FIBER DIET FOLLOW UP WITH [facility] IN 2-3 DAYS IF NO BETTER All discharge instructions reviewed with patient and/or family. Voiced understanding. Scripts Ondansetron (Ondansetron Odt) 4 Mg Tab.rapdis 4 MG PO Q4H for Nausea/Vomiting, #10 TAB Prov: CHARLES DOWNS DO 02/12/21 Hydrocortisone (Proctocort) 28.4 Gm Cream..g. 28.4 GM TP BID, #1 TUBE Prov: CHARLES DOWNS DO 02/12/21 Hydrocortisone Acetate (Proctocort) 30 Mg Supp.rect 30 MG RC PRN, #10 SUPP.RECT Prov: CHARLES DOWNS DO 02/12/21 CHARLES DOWNS DO Feb 12, 2021 21:19
[2021-02-12 21:23] LABS: ERYTHROCYTE SEDIMENTATION RATE 25 MM/HR (0-20)
[2021-02-12] MEDS ORDERED: KETOROLAC 30 MG/ML VIAL IVP ONE (21:30)
[2021-02-12] MEDS ORDERED: NS 100 ML (IVPB) BAG IV ONE ×2 (21:45→22:15)
[2021-02-12] MEDS ORDERED: IOHEXOL 350 MG/ML 100 ML (OMNIPAQUE 350) VIAL IV ONE ×2 (21:45→22:15)
[2021-02-12] MEDS ORDERED: HOLD METFORMIN - RECEIVED CONTRAST 20 ML VIAL IV SCH (21:45)
--- NOTE | 2021-02-12 22:29 | Diagnostic Imaging Report ---
CLINICAL INDICATION: Patient with abdominal pain x15 days, increasing pain this evening. Patient complains of pain with bowel movements. EXAMS: X-ray of the chest PA view and x-ray of the abdomen supine and upright views. COMPARISONS: None. FINDINGS: LUNGS/ PLEURA: Lungs are clear. There is no pneumothorax. There is no pleural effusion. MEDIASTINUM: Unremarkable. PULMONARY VASCULATURE: Unremarkable. HEART: Unremarkable. BONES/ EXTRATHORACIC SOFT TISSUE: Unremarkable. ABDOMEN AND PELVIS: Unremarkable x-ray of the abdomen with nonobstructed bowel gas pattern. There is no evidence of abdominal free air. There is a moderate amount of stool in the right colon. There are no focal calcifications overlying the expected regions/ pathways of both kidneys, ureters, and bladder regions. Rounded density in the pelvis is suspected to represent the bladder. IMPRESSION: 1: Unremarkable chest x-ray exam with no radiographic evidence of acute cardiopulmonary process. 2: Unremarkable x-ray of the abdomen. There is moderate amount of stool in the right colon region. Dictated by: Dictated on workstation # [id number]
[2021-02-12] MEDS ORDERED: HYDR30SU6 RC (22:51)
[2021-02-12] MEDS ORDERED: HYDR28.336 TP (22:51)
[2021-02-12] MEDS ORDERED: BISACODYL 10 MG SUPP (DULCOLAX) PR ONE (23:00)
[2021-02-12] MEDS ORDERED: ONDA4TAB11 PO (23:00)
[2021-02-12 23:29] VITALS: BP 119/85
--- NOTE | 2021-02-13 08:06 | Diagnostic Imaging Report ---
PROCEDURE: CT abdomen and pelvis with contrast, rule out appendicitis. TECHNIQUE: Multiple contiguous axial images were obtained through the abdomen and pelvis after the administration of intravenous contrast. All CT scans use one or more of the following dose optimizing techniques: automated exposure control, MA and/or KvP adjustment based on patient size and exam type or iterative reconstruction. INDICATION: Abdominal pain for 15 days increasing in severity today. Correlation is made with prior CT from 04/11/2017. The lung bases are clear. Liver demonstrates generalized low density consistent with hepatic steatosis. No discrete liver mass is detected. Gallbladder is surgically absent. There is no biliary ductal dilatation. Pancreas and spleen are unremarkable. No adrenal mass is detected. No renal calculi or hydronephrosis is identified. Aorta is nonaneurysmal. Bowel loops appear to be normal caliber. Appendix is visualized in the right lower quadrant appears unremarkable. There is no free fluid or fluid collection identified apart from minimal free fluid in the pelvis. The bladder is unremarkable. There is a probable fibroid in the anterior uterus. IMPRESSION: 1. Hepatic steatosis. 2. Probable uterine fibroid. 3. No evidence of appendicitis or urinary tract calculi. No acute features detected. Dictated by: Dictated on workstation # [id number]
== END 2021-02-12 23:29 | disposition home or self-care (01) ==
LOC: EDUNIT# 20:12 → ER 20:17
DX: K59.00 Constipation, unspecified (principal); E66.9 Obesity, unspecified; K21.9 Gastro-esophageal reflux disease without esophagitis; Z20.822 Contact with and (suspected) exposure to COVID-19; Z68.33 Body mass index [BMI] 33.0-33.9, adult
CPT/HCPCS: 36415; 74022; 74177; 80053; 81000; 82150; 83615; 83690; 84145; 84703; 85025; 85652; 86141; 87636

== ENCOUNTER 2021-08-30 05:30 | Outpatient (RCR) | payer SELFPAY ==
[~2021-08-30] VITALS: Ht 152.4 cm; Wt 77.1 kg
[~2021-08-30 05:30] MED LIST changes: +ASCO500T16 PO; +FERR-74 PO; +HYDR28.336 TP; +HYDR30SU6 RC; +OMEG-33 PO; +ONDA4TAB11 PO; +PANT40TA52 PO
== END 2021-09-02 11:01 | disposition home or self-care (01) ==
LOC: PREOP 05:30
PROVIDERS: ATTEND Surgery
DX: Z01.812 Encounter for preprocedural laboratory examination (principal); R10.13 Epigastric pain; U07.1 COVID-19
CPT/HCPCS: 87635

== ENCOUNTER 2022-12-31 05:28 | Outpatient (CLI) | payer SELFPAY ==
[~2022-12-31] VITALS: Ht 152.4 cm; Wt 81.4 kg
[2022-12-31] MEDS ORDERED: OMEP20CA18 PO (15:42)
[2022-12-31] MEDS ORDERED: SUCR1TAB PO (15:42)
== END 2022-12-31 16:08 | disposition home or self-care (01) ==
LOC: PREOP 05:28
PROVIDERS: ATTEND Obstetrics & Gynecology
DX: Z01.818 Encounter for other preprocedural examination (principal)

== ENCOUNTER 2023-01-06 07:11 | Day surgery (SDC) | payer OTHER ==
[2023-01-06] VITALS (9 sets, daily range): BP systolic 84–117; BP diastolic 41–66
[~2023-01-06] VITALS: Ht 152 cm; Wt 81.4 kg
[~2023-01-06 07:11] MED LIST changes: +OMEP20CA18 PO; +SUCR1TAB PO
[2023-01-06] MEDS ORDERED: BUPIVACAINE 0.25% 30 ML (SENSORCAINE) VIAL ONE (07:27)
[2023-01-06] MEDS ORDERED: BUPIVACAINE 0.25% 30 ML (SENSORCAINE) VIAL INJ ONE (07:33)
[2023-01-06] MEDS ORDERED: ONDANSETRON 4 MG/2 ML (SDV) Z0FRAN ONE (07:42)
[2023-01-06] MEDS ORDERED: LIDOCAINE PF 2% 5 ML (XYLOCAINE) VIAL ONE (07:42)
[2023-01-06] MEDS ORDERED: proPOfol 200 MG/20 ML (DIPRIVAN) VIAL IV ONE (07:42)
[2023-01-06] MEDS ORDERED: fentaNYL INJ 100 MCG/2 ML AMP ONE (07:42)
[2023-01-06] MEDS ORDERED: KETOROLAC 30 MG/ML VIAL ONE (07:42)
[2023-01-06] MEDS ORDERED: MIDAZOLAM 2 MG/2 ML (VERSED) VIAL ONE (07:43)
[2023-01-06 07:51] LABS: BASOPHILS % (AUTO) 0 % (0-10); EOSINOPHILS # (AUTO) 0.2 10^3/uL (0.0-0.3); EOSINOPHILS % (AUTO) 3 % (0-10); HEMATOCRIT 37 % (35-52); HEMOGLOBIN 12.4 g/dL (11.5-16.0); LYMPHOCYTES % (AUTO) 29 % (12-44); MEAN CORPUSCULAR HEMOGLOBIN 28 pg (25-34); MEAN CORPUSCULAR HGB CONC 34 g/dL (32-36); MEAN CORPUSCULAR VOLUME 82 fL (80-99); MEAN PLATELET VOLUME 11.2 fL (9.0-12.2); MONOCYTES # (AUTO) 0.7 10^3/uL (0.0-1.0); MONOCYTES % (AUTO) 10 % (0-12); NEUTROPHILS # (AUTO) 4.2 10^3/uL (1.8-7.8); NEUTROPHILS % (AUTO) 58 % (42-75); PLATELET COUNT 249 10^3/uL (130-400); WHITE BLOOD COUNT 7.1 10^3/uL (4.3-11.0)
[2023-01-06] MEDS: LACTATED RINGERS 1,000 ML IV PRN ×2 (08:09→09:24)
--- NOTE | 2023-01-06 08:37 | Progress Note-Pre Operative ---
Pre-Operative Progress Note Date of Available H&P: Jan 06, 2023 Date H&P Reviewed: Jan 06, 2023 Time H&P Reviewed: 08:20 History & Physical: H&P Reviewed, Patient Examed, No changes noted Pre-Operative Diagnosis: AUB, Menorrhagia LAST TRIVEDI DO Jan 06, 2023 8:37 am
[2023-01-06] MEDS ORDERED: IBUP-1773 PO (08:39)
--- NOTE | 2023-01-06 08:39 | Discharge Inst-Women's Service ---
Discharge Inst-Women's Serv Depart Medication/Instructions New, Converted or Re-Newed RX: Transmitted to Pharmacy Problems Reviewed?: Yes Consults/Follow Up Additional Follow Up: Yes Activity Activity: Activity as Tolerated Driving Instructions: No Driving for 1 Week NO SMOKING: NO SMOKING Nothing Inside Vagina: No Douching, No Bunn, No Tampons Diet Discharge Diet: No Restrictions Symptoms to Report to : Bleeding Excessive, Pain Increased, Fever Over 101 Degrees F, Vaginal Bleeding Increase, Questions/Concerns For Any Problems or Questions: Contact Your Physician LAST TRIVEDI DO Jan 06, 2023 8:39 am
[2023-01-06] MEDS ORDERED: ONDANSETRON 4 MG/2 ML (SDV) Z0FRAN IVP PRN ×2 (08:45→09:30)
[2023-01-06] MEDS ORDERED: KETOROLAC 30 MG/ML VIAL IVP ONE (08:45)
[2023-01-06] MEDS ORDERED: D5 LR IV SOLUTION 1,000 ML IV SCH (08:45)
[2023-01-06] MEDS ORDERED: SEVOFLURANE (ULTANE) 15 ML INHAL SOLN ONE (09:05)
[2023-01-06] MEDS ORDERED: PROMETHAZINE INJ 25 MG/ML (PHENERGAN) AMP IVP ONE (09:30)
[2023-01-06] MEDS ORDERED: morphine INJ 10 MG/ML 1ML (SYR OR VIAL) IVP ONE (09:30)
[2023-01-06] MEDS ORDERED: HYDROmorphone 2 MG/ML VIAL (DILAUDID) IV ONE (09:30)
--- NOTE | 2023-01-06 20:08 | OPERATIVE REPORT ---
DATE OF SERVICE: 01/06/2023 PREOPERATIVE DIAGNOSIS: A 42-year-old female with abnormal uterine bleeding. POSTOPERATIVE DIAGNOSIS: A 42-year-old female with abnormal uterine bleeding. PROCEDURE: D and C, hysteroscopy. SURGEON: Last Trivedi DO ANESTHESIA: LMA general. ESTIMATED BLOOD LOSS: Minimal. URINE OUTPUT: 50 mL drained at the end of the procedure. FLUIDS: 800 mL lactated Ringer solution. FINDINGS: Grossly normal-appearing external female genitalia. Grossly normal-appearing cervix, endocervix and endometrial cavity. SPECIMEN SENT: Endometrial curettings. INDICATIONS FOR PROCEDURE: This is a 42-year-old female. The patient has a consultation to me from the [facility]. She had a finding of abnormal heavy bleeding for the past several months. This has occurred in the past. The patient had undergone ultrasound, which showed thickened endometrium, which may be consistent with polyp formation. We discussed in the office. I discussed with the patient to proceed with D and C as a potential definitive and diagnostic measure. Risk of procedure was discussed with the patient in detail and after all of her questions were answered, consent was obtained, the patient was taken to the operating room. OPERATIVE REPORT IN DETAIL: Once in the operating room, anesthesia was administered and found to be adequate. She was placed in the dorsal lithotomy position, prepped and draped in normal sterile fashion. A timeout was performed. The bladder was drained using a straight catheterization. A weighted speculum inserted to the patient's vagina. Right angle retractor was used to visualize the cervix that was grasped at 12 o'clock position using a single tooth tenaculum. I then performed a paracervical block at 3 and 9 o'clock positions on the cervix. Care was taken to aspirate for injecting 5 mL of 0.25% Marcaine that were injected into each site. I then gently sounded uterine cavity, depth was found to be 8 cm. I then gently dilated the cervix using Hanks dilators to maximum dilatation of 8 mm, at which point I introduced a hysteroscope 8 mm into the uterus. Using the [employer] fluid management system and normal saline as my visual medium, I am able to visualize the endometrial cavity as documented by my photos in the chart. There are no signs of submucosal fibroid formation or polypoid formation. Bilateral tubal ostia were identified. I then removed the hysteroscope and performed a gentle curettage of all endometrial surfaces collecting all endometrial tissue and sent as endometrial curettings, after which I removed the single tooth tenaculum. There was a significant amount of bleeding noted from the tenaculum site; therefore, I used Bovie cautery to cauterize these 2 areas, after which bleeding significantly slowed and there was no active bleeding noted from the cervix. I removed all the instruments from the patient's vagina. The patient tolerated the procedure well and was taken to recovery in stable condition. Lap and sponge counts were correct at the end of the procedure. Instrument counts correct as well. Job ID: [id number] DocumentID: [id number] Dictated Date: 01/06/2023 09:40:33 Pool Hand Date: 01/06/2023 20:06:00 Dictated By: LAST TRIVEDI DO
== END 2023-01-06 11:00 | disposition home or self-care (01) ==
LOC: SDC 07:11
PROVIDERS: ATTEND Obstetrics & Gynecology
DX: N84.0 Polyp of corpus uteri (principal); D25.9 Leiomyoma of uterus, unspecified; N93.9 Abnormal uterine and vaginal bleeding, unspecified; E66.01 Morbid (severe) obesity due to excess calories; D50.0 Iron deficiency anemia secondary to blood loss (chronic); Z28.310 Unvaccinated for COVID-19; Z68.35 Body mass index [BMI] 35.0-35.9, adult
CPT/HCPCS: 36415; 84703; 85025; 86850; 86900; 86901; 87081